=== PATIENT | female | born 1980 | race Hispanic/Latino ===

== ENCOUNTER 2020-05-15 21:05 | Emergency (ER) | payer BC ==
[2020-05-15 22:09] LABS: Protime INR 0.98
[2020-05-15 22:12] LABS: ALT/SGPT 22 U/L (12-78); AST/SGOT 12 U/L (15-37); Albumin 4.6 g/dL (3.4-5.0); Alkaline Phosphatase 90 U/L (45-117); BUN Blood Urea Nitrogen 6 mg/dL (7-18); Bicarbonate 26 mmol/L (21-32); Bilirubin Direct < 0.1 mg/dL (0-0.2); Bilirubin Total 0.2 mg/dL (0.2-1.0); Glucose Level 77 mg/dL (74-106); Magnesium 2.5 mg/dL (1.8-2.4); NT PRO-BNP 30 pg/mL (<125); Potassium 3.4 mmol/L (3.5-5.1); Protein, Total 8.6 g/dL (6.4-8.2); Sodium Level 140 mmol/L (136-145); Troponin (Emerg Dept Use Only) < 0.02 ng/mL (0.0-0.045)
--- NOTE | 2020-05-15 22:12 | RAD REPORT ---
EXAM DESCRIPTION: RAD - Chest Single View - 05/15/2020 10:03 pm CLINICAL HISTORY: CHEST PAIN Chest pain. COMPARISON: No comparisons FINDINGS: Portable technique limits examination quality. The lungs are grossly clear. The heart is normal in size. No displaced fractures. IMPRESSION: No acute intrathoracic process suspected.
[2020-05-15] MEDS ORDERED: METOCLOPRAMIDE 10 MG/2mL INJ ONE (22:59)
[2020-05-15] MEDS ORDERED: NA CHLORIDE 0.9% 1,000 ML ONE (22:59)
[2020-05-15] MEDS ORDERED: DIPHENHYDRAMINE 50 MG/ML VIAL ONE (22:59)
[2020-05-15 23:05] LABS: Absolute Lymphocytes (CBC) 1.8 K/uL (0.7-4.9); Basophils % 0.7 % (0-1.3); Hematocrit 34.9 % (36.0-45.0); Lymphocytes % 24.8 % (15.3-44.8); MPV 10.5 fL (7.6-11.3); RBC Red Blood Cell Count 4.58 M/uL (3.86-4.86)
[2020-05-15 23:14] LABS: Barbiturates NEGATIVE (NEGATIVE); Benzodiazepines NEGATIVE (NEGATIVE); Cocaine NEGATIVE (NEGATIVE); METHAMPHETAM NEGATIVE (NEGATIVE); Methadone NEGATIVE (NEGATIVE); Opiates NEGATIVE (NEGATIVE); Phencyclidine NEGATIVE (NEGATIVE); THC Cannibis NEGATIVE (NEGATIVE)
[2020-05-15 23:32] LABS: Urine Blood NEGATIVE (NEG); Urine Glucose NEGATIVE (NEG)
[2020-05-15 23:33] LABS: Urine Protein NEGATIVE (NEG)
[2020-05-15 23:34] LABS: Urine Bacteria 20-50 /HPF (<20); Urine Culture Reflex Order REFLEXED; Urine RBC <5 /HPF (NONE SEEN); Urine Urothelial Cells <5 /HPF (NONE SEEN)
--- NOTE | 2020-05-16 02:03 | ER ---
Nurse's Notes [facility] Name: Lyndsay Mahoney Age: 39 yrs Sex: Female : 1980 Arrival Date: 05/15/2020 Time: 21:06 Bed 7 Private MD: Rahul Drummond Diagnosis: Chest pain, unspecified;Sinusitis;UTI Presentation: 05/15 21:12 Chief complaint: Patient states: chest pain, on and off for like a month or so. It has ca1 gotten worse tonight with my L arm tingling and numbness, headache and nausea. Took Lisinopril 40mg at 1730 as prescribed. 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 Coronavirus screen: Client denies travel out of the [place] in the last 14 days. headache, nausea, The client reports previous COVID testing was negative. Date of collection: March 2020. Ebola Screen: Patient negative for fever greater than or equal to 101.5 degrees Fahrenheit, and additional compatible Ebola Virus Disease symptoms Patient denies exposure to infectious person. Patient denies travel to an Ebola-affected area in the 21 days before illness onset. No symptoms or risks identified at this time. Initial Sepsis Screen: Does the patient meet any 2 criteria? No. Patient's initial sepsis screen is negative. Does the patient have a suspected source of infection? No. Patient's initial sepsis screen is negative. Risk Assessment: Do you want to hurt yourself or someone else? Patient reports no desire to harm self or others. Onset of symptoms was May 15, 2020. 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 - Social history:: Smoking status: Patient reports the use of cigarette tobacco products, smokes one pack cigarettes per day. Screenin:15 Abuse screen: Denies threats or abuse. Nutritional screening: No deficits noted. jb4 Tuberculosis screening: No symptoms or risk factors identified. Fall Risk None identified. Assessment: 21:15 General: Appears in no apparent distress. uncomfortable, Behavior is calm, cooperative, jb4 appropriate for age. Pain: Complains of pain in chest Pain radiates to left arm, head Pain currently is 8 out of 10 on a pain scale. Quality of pain is described as pressure. Neuro: Level of Consciousness is awake, alert, obeys commands, Oriented to person, place, time, situation. Cardiovascular: Patient's skin is warm and dry. Respiratory: Airway is patent Respiratory effort is even, unlabored, Respiratory pattern is regular, symmetrical. GI: No signs and/or symptoms were reported involving the gastrointestinal system. : No signs and/or symptoms were reported regarding the genitourinary system. EENT: No signs and/or symptoms were reported regarding the EENT system. Derm: Skin is intact, Skin is pink, warm \T\ dry. Musculoskeletal: Circulation, motion, and sensation intact. Range of motion: intact in all extremities. 22:15 Reassessment: Patient appears in no apparent distress at this time. Patient and/or jb4 family updated on plan of care and expected duration. Pain level reassessed. Patient is alert, oriented x 3, equal unlabored respirations, skin warm/dry/pink. 23:11 Reassessment: Patient appears in no apparent distress at this time. Patient and/or jb4 family updated on plan of care and expected duration. Pain level reassessed. Patient is alert, oriented x 3, equal unlabored respirations, skin warm/dry/pink. 05/16 00:10 Reassessment: Patient appears in no apparent distress at this time. Patient and/or jb4 family updated on plan of care and expected duration. Pain level reassessed. Patient is alert, oriented x 3, equal unlabored respirations, skin warm/dry/pink. 01:00 Reassessment: Patient appears in no apparent distress at this time. Patient and/or jb4 family updated on plan of care and expected duration. Pain level reassessed. Patient is alert, oriented x 3, equal unlabored respirations, skin warm/dry/pink. 02:00 Reassessment: Patient appears in no apparent distress at this time. Patient and/or jb4 family updated on plan of care and expected duration. Pain level reassessed. Patient is alert, oriented x 3, equal unlabored respirations, skin warm/dry/pink. Vital Signs: 05/15 21:12 BP 192 / 112; Pulse 99; Resp 18 S; Temp 98(TE); Pulse Ox 100% on R/A; Weight 62.14 kg ca1 (R); Height 5 ft. (152.40 cm); Pain /; 21:45 BP 162 / 110; Pulse 84; Resp 16; Pulse Ox 100% on R/A; jb4 23:15 BP 117 / 63; Pulse 90; Resp 16; Pulse Ox 100% on R/A; jb4 05/16 00:00 BP 118 / 75; Pulse 79; Resp 16; Pulse Ox 100% on R/A; jb4 01:13 BP 117 / 78; Pulse 76; Resp 16; Pulse Ox 99% on R/A; ll2 01:45 BP 104 / 65; Pulse 92; Resp 16; Pulse Ox 100% on R/A; jb4 05/15 21:12 Body Mass Index 26.76 (62.14 kg, 152.40 cm) ca1 ED Course: 05/15 21:06 Patient arrived in ED. am2 21:07 Rahul Drummond is Private Physician. am2 21:15 Patient has correct armband on for positive identification. Placed in gown. Bed in low jb4 position. Call light in reach. Side rails up X 1. real estate salesperson on. Pulse ox on. NIBP on. 21:16 Triage completed. ca1 21:18 Arm band placed on right wrist. ca1 21:33 Frank Maciel, RN is Primary Nurse. jb4 21:40 Initial lab(s) drawn, by wa, sent to lab. EKG done, by ED staff, reviewed by Tesfaye Llamas MD. Inserted saline lock: 18 gauge in right antecubital area, using aseptic technique. Blood collected. 22:04 Tesfaye Llamas MD is Attending Physician. 7 22:04 XRAY Chest (1 view) In Process Unspecified. EDMS 22:38 UDS Sent. ds4 22:41 Urine Dipstick--Ancillary (enter results) Sent. ds4 22:41 Urine Microscopic Only Sent. ds4 23:05 CT Head Brain wo Cont In Process Unspecified. EDMS 05/16 01:59 Abner Pandya MD is Referral Physician. mh7 02:10 No provider procedures requiring assistance completed. IV discontinued, intact, jb4 bleeding controlled, No redness/swelling at site. Pressure dressing applied. Administered Medications: 05/15 23:00 Drug: Reglan 10 mg Route: IVP; Site: right antecubital; jb4 23:30 Follow up: Response: No adverse reaction; Marked relief of symptoms jb4 23:00 Drug: Benadryl 25 mg Route: IVP; Site: right antecubital; jb4 23:30 Follow up: Response: No adverse reaction; Marked relief of symptoms jb4 23:00 Drug: NS 0.9% 1000 ml Route: IV; Rate: 1000 ml; Site: right antecubital; jb4 05/16 00:00 Follow up: Response: No adverse reaction; IV Status: Completed infusion jb4 02:08 Drug: LevaQUIN 500 mg Route: PO; jb4 02:12 Follow up: Response: Medication administered at discharge. jb4 Outcome: 02:00 Discharge ordered by . mh7 02:10 Discharged to home ambulatory, with family. jb4 02:10 Condition: stable 02:10 Discharge instructions given to patient, family, Instructed on discharge instructions, follow up and referral plans. medication usage, Demonstrated understanding of instructions, follow-up care, medications, Prescriptions given X 1. 02:13 Patient left the ED. jb4 Signatures: Dispatcher [employer] EDTX CavanaughMeng ds4 Frank Maciel RN RN jb4 Юлия Loera am2 Dai Edwards RN RN ca1 Josefina Martinez RN RN 2 Tesfaye Llamas MD MD 7 Corrections: (The following items were deleted from the chart) 05/15 23:25 23:11 Reassessment: Patient and/or family updated on plan of care and expected jb4 duration. Pain level reassessed. pt is resting in bed with eyes closed, no s/s of pain or distress noted. Daughter remains at the bedside. jb4
--- NOTE | 2020-05-16 02:04 | EDPHYS ---
Physician Documentation [facility] Name: Lyndsay Mahoney Age: 39 yrs Sex: Female : 1980 Arrival Date: 05/15/2020 Time: 21:06 Bed 7 Private MD: Rahul Drummond ED Physician Tesfaye Llamas HPI: 05/15 22:49 This 39 yrs old Female presents to ER via Ambulatory with complaints of mh7 Headache, Chest Pain, Arm tingling. 22:49 The patient or guardian reports chest pain that is located primarily in the anterior mh7 chest wall, left. The pain radiates to the left arm. 22:49 Associated signs and symptoms: Pertinent positives: headache, nausea, Pertinent mh7 negatives: abdominal pain, cough, diaphoresis, dizziness, lower extremity pain, lower extremity swelling, lightheadedness, near syncope, palpitations, recent travel, shortness of breath, syncope, vomiting. The chest pain is described as sharp. Duration: The patient or guardian reports multiple episodes, that are intermittent, that wax and wane, with no pattern. Modifying factors: The symptoms are alleviated by nothing. the symptoms are aggravated by nothing. Severity of pain: At its worst the pain was moderate today, in the emergency department the pain has improved moderately. The patient has experienced similar episodes in the past, multiple times. Patient with intermittent chest pain for more than one month that seemed to increase earlier today. She also reports headache and nausea.. 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 - Social history:: Smoking status: Patient reports the use of cigarette tobacco products, smokes one pack cigarettes per day. ROS: 22:49 Constitutional: Negative for fever, chills, and weight loss, Eyes: Negative for injury, mh7 pain, redness, and discharge, ENT: Negative for injury, pain, and discharge, Neck: Negative for injury, pain, and swelling, Respiratory: Negative for shortness of breath, cough, wheezing, and pleuritic chest pain, Back: Negative for injury and pain, : Negative for injury, bleeding, discharge, and swelling, MS/Extremity: Negative for injury and deformity, Skin: Negative for injury, rash, and discoloration, Psych: Negative for depression, anxiety, suicide ideation, homicidal ideation, and hallucinations, Allergy/Immunology: Negative for hives, rash, and allergies, Endocrine: Negative for neck swelling, polydipsia, polyuria, polyphagia, and marked weight changes, Hematologic/Lymphatic: Negative for swollen nodes, abnormal bleeding, and unusual bruising. Exam: 22:49 Constitutional: This is a well developed, well nourished patient who is awake, alert, mh7 and in no acute distress. Head/Face: Normocephalic, atraumatic. Eyes: Pupils equal round and reactive to light, extra-ocular motions intact. Lids and lashes normal. Conjunctiva and sclera are non-icteric and not injected. Cornea within normal limits. Periorbital areas with no swelling, redness, or edema. Neck: Trachea midline, no thyromegaly or masses palpated, and no cervical lymphadenopathy. Supple, full range of motion without nuchal rigidity, or vertebral point tenderness. No Meningismus. Chest/axilla: Normal chest wall appearance and motion. Nontender with no deformity. No lesions are appreciated. Cardiovascular: Regular rate and rhythm with a normal S1 and S2. No gallops, murmurs, or rubs. Normal PMI, no JVD. No pulse deficits. Respiratory: Lungs have equal breath sounds bilaterally, clear to auscultation and percussion. No rales, rhonchi or wheezes noted. No increased work of breathing, no retractions or nasal flaring. Abdomen/GI: Soft, non-tender, with normal bowel sounds. No distension or tympany. No guarding or rebound. No evidence of tenderness throughout. Back: No spinal tenderness. No costovertebral tenderness. Full range of motion. Skin: Warm, dry with normal turgor. Normal color with no rashes, no lesions, and no evidence of cellulitis. MS/ Extremity: Pulses equal, no cyanosis. Neurovascular intact. Full, normal range of motion. Neuro: Awake and alert, GCS 15, oriented to person, place, time, and situation. Cranial nerves II-XII grossly intact. Motor strength 5/5 in all extremities. Sensory grossly intact. Cerebellar exam normal. Normal gait. Psych: Awake, alert, with orientation to person, place and time. Behavior, mood, and affect are within normal limits. Vital Signs: 21:12 BP 192 / 112; Pulse 99; Resp 18 S; Temp 98(TE); Pulse Ox 100% on R/A; Weight 62.14 kg ca1 (R); Height 5 ft. (152.40 cm); Pain 8/10; 21:45 BP 162 / 110; Pulse 84; Resp 16; Pulse Ox 100% on R/A; jb4 23:15 BP 117 / 63; Pulse 90; Resp 16; Pulse Ox 100% on R/A; jb4 05/16 00:00 BP 118 / 75; Pulse 79; Resp 16; Pulse Ox 100% on R/A; jb4 01:13 BP 117 / 78; Pulse 76; Resp 16; Pulse Ox 99% on R/A; ll2 01:45 BP 104 / 65; Pulse 92; Resp 16; Pulse Ox 100% on R/A; jb4 05/15 21:12 Body Mass Index 26.76 (62.14 kg, 152.40 cm) ca1 MDM: 05/15 22:30 Patient medically screened. 7 05/16 01:53 Differential diagnosis: acute myocardial infarction, acute pericarditis, anxiety, [facility] coronary artery disease chest wall pain, congestive heart failure costochondritis, pericarditis, pleurisy, pneumonia. HEART Score: History: Slightly Suspicious (0), ECG: Normal (0), Age: < or = 45 years (0), Risk Factors: 1 or 2 risk factors (1), [Hypertension] [DM] Troponin: < or = 1 x Normal Limit (0), Total Score = 1. Data reviewed: vital signs, nurses notes, lab test result(s), cardiac enzymes, CBC, electrolytes, urinalysis, EKG, radiologic studies, CT scan, plain films. Data interpreted: Pulse oximetry: on room air is 99 %. Interpretation: normal. Counseling: I had a detailed discussion with the patient and/or guardian regarding: the historical points, exam findings, and any diagnostic results supporting the discharge/admit diagnosis, lab results, radiology results, the need for outpatient follow up, to return to the emergency department if symptoms worsen or persist or if there are any questions or concerns that arise at home. Response to treatment: the patient's symptoms have resolved after treatment, the patient's blood pressure is in an acceptable range, mental status has returned to baseline, the patient no longer shows bradycardia, the patient is not short of breath, the patient is not tachycardic, the patient's pain is gone, the patient's temperature has normalized. 05/15 21:34 Order name: Basic Metabolic Panel; Complete Time: 22:30 [facility] 05/15 21:34 Order name: CBC with Diff; Complete Time: 23:16 [facility] 05/15 21:34 Order name: LFT's; Complete Time: 22:30 [facility] 05/15 21:34 Order name: Magnesium; Complete Time: 22:30 [facility] 05/15 21:34 Order name: NT PRO-BNP; Complete Time: 22:30 [facility] 05/15 21:34 Order name: PT-INR; Complete Time: 22:30 [facility] 05/15 21:34 Order name: Troponin (emerg Dept Use Only); Complete Time: 22:30 [facility] 05/15 21:34 Order name: XRAY Chest (1 view); Complete Time: 22:30 4 05/15 22:22 Order name: UDS; Complete Time: 23:16 4 05/15 22:38 Order name: Urine Microscopic Only; Complete Time: 00:00 4 05/15 22:39 Order name: Urine Dipstick--Ancillary (enter results); Complete Time: 00:00 4 05/15 22:40 Order name: Urine --Ancillary (enter results); Complete Time: 00:00 4 05/15 23:36 Order name: Urine Culture EDMS 05/16 00:54 Order name: Troponin I; Complete Time: 01:41 4 05/15 21:34 Order name: EKG; Complete Time: 21:35 [facility] 05/15 21:34 Order name: Cardiac monitoring; Complete Time: 21:46 4 05/15 21:34 Order name: EKG - Nurse/Tech; Complete Time: 21:46 [facility] 05/15 21:34 Order name: IV Saline Lock; Complete Time: 21:46 jb4 05/15 21:34 Order name: Labs collected and sent; Complete Time: 21:47 4 05/15 21:34 Order name: O2 Per Protocol; Complete Time: 21:47 jb4 05/15 21:34 Order name: O2 Sat Monitoring; Complete Time: 21:47 jb4 05/15 22:22 Order name: CT Head Brain wo Cont jb4 05/15 22:22 Order name: Urine Test (obtain specimen); Complete Time: 22:31 jb4 05/15 22:22 Order name: Urine Dipstick-Ancillary (obtain specimen); Complete Time: 22:31 [facility] Administered Medications: 05/15 23:00 Drug: Reglan 10 mg Route: IVP; Site: right antecubital; 4 23:30 Follow up: Response: No adverse reaction; Marked relief of symptoms jb4 23:00 Drug: Benadryl 25 mg Route: IVP; Site: right antecubital; 4 23:30 Follow up: Response: No adverse reaction; Marked relief of symptoms 4 23:00 Drug: NS 0.9% 1000 ml Route: IV; Rate: 1000 ml; Site: right antecubital; 4 05/16 00:00 Follow up: Response: No adverse reaction; IV Status: Completed infusion jb4 02:08 Drug: LevaQUIN 500 mg Route: PO; 4 02:12 Follow up: Response: Medication administered at discharge. 4 Disposition: 05/16/20 02:00 Discharged to Home. Impression: Chest pain, unspecified, Sinusitis, UTI. - Condition is Stable. - Discharge Instructions: Sinusitis, Adult, [id number], Urinary Tract Infection, Adult, [id number], Nonspecific Chest Pain, [id number]. - Prescriptions for Levaquin 500 mg Oral Tablet - take 1 tablet by ORAL route once daily for 7 days; 7 tablet. - Medication Reconciliation Form, Thank You Letter, Antibiotic Education, Prescription Opioid Use form. - Follow up: Private Physician; When: 1 - 2 days; Reason: Worsening of condition, Recheck today's complaints, Continuance of care, Re-evaluation by your physician. Follow up: Abner Pandya MD; When: 1 - 2 days; Reason: Worsening of condition, Recheck today's complaints. - Problem is an ongoing problem. - Symptoms have improved. Signatures: Dispatcher [employer] EDMS Jemal Alfaro, BENCH CARPENTER-C BENCH CARPENTER-Cla1 Frank Maciel RN RN jb4 Dai Edwards RN RN Tesfaye Garcia MD MD mh7 Corrections: (The following items were deleted from the chart) 02:13 02:00 05/16/2020 02:00 Discharged to Home. Impression: Chest pain, unspecified; jb4 Sinusitis; UTI. Condition is Stable. Forms are Medication Reconciliation Form, Thank You Letter, Antibiotic Education, Prescription Opioid Use. Follow up: Private Physician; When: 1 - 2 days; Reason: Worsening of condition, Recheck today's complaints, Continuance of care, Re-evaluation by your physician. Follow up: Abner Pandya; When: 1 - 2 days; Reason: Worsening of condition, Recheck today's complaints. Problem is an ongoing problem. Symptoms have improved. mh7
[2020-05-16] MEDS ORDERED: levoFLOXacin 250 MG TAB ONE (02:18)
[2020-05-16 02:31] VITALS: TEMP 98
[2020-05-16 02:38] VITALS: BP 104/65; O2SAT 100
--- NOTE | 2020-05-16 13:19 | RAD REPORT ---
EXAM DESCRIPTION: Head Brain Wo Cont CLINICAL HISTORY: 39 years Female HEADACHE COMPARISON: None TECHNIQUE: Contiguous axial images of the brain were obtained without the administration of intraven ous contrast.This exam was performed according to our departmental dose-optimization program which in cludes use of Automated Exposure Control, adjustment of the mA and/or kV according to patient size an d/or use of iterative reconstruction technique. DLP: 827 mGy*cm FINDINGS: Brain: No acute intracranial hemorrhage. No extra-axial collection. No mass effect or donny iation. Small rounded right basal ganglia hypodensity, likely prominent perivascular space. Ventricles: Within normal limits in size. Globes and orbits: No acute abnormality. Bones: No acute osseous finding Paranasal sinuses: Left maxillary sinus disease. Mastoid air cells: Well pneumatized. Soft tissues: Within normal limits IMPRESSION: No acute intracranial abnormality. Left maxillary sinus disease. Electronically signed by: Gibran Stanford DO 05/15/2020 11:11 PM CDT Due to temporary technical issues with the PACS/Fluency reporting system, reports are being signed by the in house radiologist without review as a courtesy to ensure prompt reporting. The interpreting r adiologist is fully responsible for the content of the report.
--- NOTE | 2020-05-17 07:15 | EKG ---
Test Date: 2020-05-15 Test Time: 21:40:55 Composition Worker: DAKOTA MEASUREMENT RESULTS: Intervals: Rate: 84 HI: 166 QRSD: 92 QT: 366 QTc: 432 [place]: P: 30 HI: 166 QRS: 10 T: 30 INTERPRETIVE STATEMENTS: Normal sinus rhythm Normal ECG No previous ECG available for comparison Electronically Signed On 05-17-20 07:13:43 CDT by Abner Pandya
== END 2020-05-16 02:13 | disposition home or self-care (01) ==
LOC: ER 21:05
DX: J32.9 Chronic sinusitis, unspecified (principal); N39.0 Urinary tract infection, site not specified; I10 Essential (primary) hypertension; E11.9 Type 2 diabetes mellitus without complications; F17.210 Nicotine dependence, cigarettes, uncomplicated
CPT/HCPCS: 96361; 93005; 87088; 85025; 87086; 80048; 36415; 83735; 81025; 85610; 80076; 80307 ×8; 84484 ×2; 83880; 70450; 71045; 96375; 96374; 99285; J2765; J1200; J7030; 81003; 81015

== ENCOUNTER 2022-03-28 02:10 | Emergency (ER) | payer BC, SELFPAY ==
--- OUTSIDE RECORDS SUMMARY | 2022-03-28 02:14 | XMS REPORT | Continuity of Care Document ---
:1980 Author Organization [facility] t Address [address] [place] [address] Care Team Providers Name Role Phone Asher Cantu MD Primary Care Physician [phone] SANTIAGO Attending Clinician Unavailable Clari Attending Clinician Unavailable ASHER CANTU Attending Clinician Unavailable MD ASHER CANTU Attending Clinician Unavailable SANTIAGO Admitting Clinician Unavailable Clari Admitting Clinician Unavailable ASHER CANTU Admitting Clinician Unavailable MD ASHER CANTU Admitting Clinician Unavailable Payers Payer Name Policy Type Policy Number Effective Date Expiration Date S lauraaxel [place] [id number] 2014 00:00:00 [place] Problems Condition Condition Condition Status Onset Resolution Last Treating Co mments Source Name Details Category Date Date Treatment Clinician Date Iron Iron Problem Active [facility] deficiency Deficiency 2-02 da anemia Anemia 00:00: Medical 00 Group COVID-19 COVID-19 Disease Active 2019-08 Metho di virus virus 18 [facility] detected detected 00:00: Hospit a 00 l Fecal Fecal Disease Active 2019-[address] 00:00: Hospita 00 l Colitis Colitis Disease Active 2019-08 Methodi 08-20 st 00:00: Hospita 00 l Hematochez Hematochez Disease Active 2019-08 Overview : Methodi ia ia 08-[address] 00:00: g of this Hospita 00 note l might be different from the original. Added automatic ally from request for surgery [id number] Iron Iron Disease Active 2019-08 Overview: Method i deficiency deficiency 08-[address] 00:00: g of this Hospita 00 note l might be different from the original. Added automatic ally from request for surgery [id number] On On Problem Active [facility] examinatio Examinatio 8 da n - VE - n - VE - 00:00: Medica l uterine Uterine 00 Group tenderness Tenderness Menometror Menometror Problem Active M [facility] rhagia rhagia 03-07 da 00:00: Medical 00 Group History of History of Problem Active [facility] anemia - Anemia - 03-07 da iron Iron 00:00: Medical deficient Deficient 00 Grou p Bacterial Bacterial Problem Active [facility] vaginosis Vaginosis 626 da 00:00: Medical 00 Group Right Right Problem Active [facility] lower Lower 6-26 da quadrant Quadrant 00:00: Medica l pain Pain 00 Group Acute Acute Problem Active [facility] pelvic Pelvic 9-25 da pain Pain 00:00: Medical 00 Group Pelvic Pelvic Problem Active [facility] mass Mass 9-25 da 00:00: Medical 00 Group Menorrhagi Menorrhagi Problem Active [facility] a a 9-11 da 00:00: Medical 00 Group Constipati Constipati Problem Active [facility] on on [facility] Rectal Rectal Problem Active [facility] hemorrhage Hemorrhage [facility] Left upper Left Upper Problem Active [facility] quadrant Quadrant da pain Pain Medical Group Allergies, Adverse Reactions, Alerts This patient has no known allergies or adverse reactions. Family History Family Member Diagnosis Comments Start Date Stop Date Source Natural father [facility] Natural mother Cancer [facility] Social History Social Habit Start Date Stop Date Quantity Comments Source History SDOH [facility] Alcohol Binge Hospital History SDOH [facility] Alcohol Comment Hospital History SDOH [facility] Alcohol Std Hospital Drinks Tobacco use and 2020-06-20 2020-06-20 User of smokeless Me thodist exposure 00:00:00 00:00:00 tobacco Hospital Alcohol intake 2020-06-20 2020-06-20 Current drinker Metho dist 00:00:00 00:00:00 of alcohol Hospital (finding) History SDOH 2020-06-20 2020-06-20 4 Yazidism Alcohol Frequency 00:00:00 00:00:00 Hospita l Sex Assigned At [birth year] Y[facility]idism 00:00:00 00:00:00 Hospital Smoking Status Start Date Stop Date Source Heavy Tobacco Smoker [facility] Smokes tobacco daily 2020-06-20 00:00:[address] [facility] Medications Ordered Filled Start Stop Current Ordering Indication Dosage Frequency Signature Comments Components Source Medication Medication Date Date Medication? Clinician (SIG) Name Name lisinopriL 2019-08 Yes 40mg QD Take 40 mg M ethodi (PRINIVIL) 1-[address] 40 mg 08:06: daily. Hospita tablet 11 l dulaglutide 2019-08 Yes 1.5mg Q1W Inject 1.5 [facility] (Trulicity) 1-[address] 1.5 mg/0.5 08:06: the skin Hos usha mL pen 11 every 7 l injector days. esomeprazol 2019-08 Yes 40mg QD Take 40 mg Methodi e (NexIUM) 1-[address] 40 MG 08:06: daily Hospita capsule 11 before l breakfast. ferrous 2019-08 Yes 325mg QD Take 1 [facility] sulfate 325 1-[address] (65 FE) MG 00:00: (325 mg Hosp nohemi EC tablet 00 total) by l mouth daily with breakfast. acetaminoph acetaminoph No acetaminop [place] en 300 en 300 hen 300 da mg-codeine mg-codeine mg-codeine Medical 30 mg 30 mg 30 mg Group tablet TAKE tablet TAKE tablet ONE (1) TO ONE (1) TO TAKE ONE TWO (2) TWO (2) (1) TO TWO TABLET(S) TABLET(S) (2) BY MOUTH BY MOUTH TABLET(S) EVERY SIX EVERY SIX BY MOUTH HOURS HOURS EVERY SIX NEEDED FOR NEEDED FOR HOURS PAIN. PAIN. NEEDED FOR PAIN. amlodipine amlodipine No amlodipine [facility] amlodipine amlodipine No amlodipine [facility] 5 mg tablet 5 mg tablet 5 mg d a tablet Medical Group Bydureon Bydureon No Bydureon [facility] BCise 2 BCise 2 BCise 2 da mg/0.85 mL mg/0.85 mL mg/0.85 mL Medical subcutaneou subcutaneou subcutaneo Group s s us auto-inject auto-inject auto-injec or Inject or Inject tor Inject by by by subcutaneou subcutaneou subcutaneo s route. s route. us route. esomeprazol esomeprazol No esomeprazo [place] e magnesium e magnesium le d a 40 mg 40 mg magnesium Medical capsule,del capsule,del 40 mg Group ayed ayed capsule,de release release layed TAKE ONE TAKE ONE release (1) (1) TAKE ONE CAPSULE(S) CAPSULE(S) (1) BY MOUTH BY MOUTH CAPSULE(S) DAILY. DAILY. BY MOUTH DAILY. Estarylla Estarylla No Estarylla [facility] 0.25 mg-35 0.25 mg-35 0.25 mg-35 da mcg tablet mcg tablet mcg tablet Medical TAKE ONE TAKE ONE TAKE ONE Christina up (1) (1) (1) TABLET(S) TABLET(S) TABLET(S) BY MOUTH BY MOUTH BY MOUTH ONCE A DAY. ONCE A DAY. ONCE A DAY. ferrous ferrous No ferrous [facility] sulfate 325 sulfate 325 sulfate da mg (65 mg mg (65 mg 325 mg (65 Medical iron) iron) mg iron) Group tablet TAKE tablet TAKE tablet ONE (1) ONE (1) TAKE ONE TABLET(S) TABLET(S) (1) BY MOUTH BY MOUTH TABLET(S) DAILY FOR DAILY FOR BY MOUTH THREE DAYS THREE DAYS DAILY FOR THEN THEN THREE DAYS INCREASE TO INCREASE TO THEN TWICE DAILY TWICE DAILY INCREASE FOR ONE FOR ONE TO TWICE WEEK THEN WEEK THEN DAILY FOR THREE TIMES THREE TIMES ONE WEEK DAILY. DAILY. THEN THREE TIMES DAILY. ferrous ferrous No ferrous [facility] sulfate 325 sulfate 325 sulfate da mg (65 mg mg (65 mg 325 mg (65 Medical iron) iron) mg iron) Group tablet,kirill tablet,kirill tablet,del yed release yed release ayed TAKE ONE TAKE ONE release (1) TABLET (1) TABLET TAKE ONE (325 MG (325 MG (1) TABLET TOTAL) BY TOTAL) BY (325 MG MOUTH DAILY MOUTH DAILY TOTAL) BY WITH WITH MOUTH BREAKFAST. BREAKFAST. DAILY WITH BREAKFAST. Flagyl 500 Flagyl 500 No 1 BID Flagyl 500 [facility] mg tablet mg tablet mg tablet da Take 1 Take 1 Take 1 Medical tablet tablet tablet Group twice a day twice a day twice a by oral by oral day by route for 7 route for 7 oral route days. days. for 7 days. ibuprofen ibuprofen No ibuprofen [facility] 800 mg 800 mg 800 mg da tablet TAKE tablet TAKE tablet Medical ONE (1) ONE (1) TAKE ONE Group TABLET(S) TABLET(S) (1) BY MOUTH BY MOUTH TABLET(S) EVERY SIX EVERY SIX BY MOUTH HOURS HOURS EVERY SIX NEEDED. NEEDED. HOURS NEEDED. lorazepam 1 lorazepam 1 No lorazepam [facility] mg tablet mg tablet 1 mg da TAKE ONE TAKE ONE tablet Medic al (1) (1) TAKE ONE Group TABLET(S) TABLET(S) (1) BY MOUTH BY MOUTH TABLET(S) ONCE A DAY ONCE A DAY BY MOUTH AT BEDTIME. AT BEDTIME. ONCE A DAY AT BEDTIME. losartan losartan No losartan [facility] medroxyprog medroxyprog No medroxypro [facility] esterone 10 esterone 10 gesterone da mg tablet mg tablet 10 mg Medi deven TAKE TWO TAKE TWO tablet Group (2) (2) TAKE TWO TABLET(S) TABLET(S) (2) BY MOUTH BY MOUTH TABLET(S) EVERY DAY EVERY DAY BY MOUTH FOR 14 FOR 14 EVERY DAY DAYS. DAYS. FOR 14 DAYS. mometasone mometasone No mometasone [facility] 50 50 50 da mcg/actuati mcg/actuati mcg/actuat Medical on nasal on nasal ion nasal Gr oup spray spray spray INSTILL TWO INSTILL TWO INSTILL (2) (2) TWO (2) SPRAY(S) SPRAY(S) SPRAY(S) INTO EACH INTO EACH INTO EACH NOSTRIL NOSTRIL NOSTRIL ONCE A DAY. ONCE A DAY. ONCE A DAY. phentermine phentermine No phentermin [facility] 37.5 mg 37.5 mg e 37.5 mg da tablet TAKE tablet TAKE tablet Medical ONE (1) ONE (1) TAKE ONE Group TABLET(S) TABLET(S) (1) BY MOUTH BY MOUTH TABLET(S) ONCE A DAY. ONCE A DAY. BY MOUTH ONCE A DAY. simvastatin simvastatin No simvastati [place] 10 mg 10 mg n 10 mg da tablet tablet tablet Medical Group Suprep Suprep No Suprep [facility] Bowel Prep Bowel Prep Bowel Prep da Kit 17.5 Kit 17.5 Kit 17.5 Med ical gram-3.13 gram-3.13 gram-3.13 Group gram-1.6 gram-1.6 gram-1.6 gram oral gram oral gram oral solution solution solution TAKE 1 KIT TAKE 1 KIT TAKE 1 KIT BY MOUTH BY MOUTH BY MOUTH SPLIT DOSE SPLIT DOSE SPLIT DOSE DIRECTED DIRECTED FOR FOR DIRECTED COLONOSCOPY COLONOSCOPY FOR PREP PREP COLONOSCOP Y PREP Tri-Alejandrina Tri-Alejandrina No Tri-Alejandrina [facility] 0.01 %-4 0.01 %-4 0.01 %-4 da %-0.05 % %-0.05 % %-0.05 % Med ical topical topical topical Group cream APPLY cream APPLY cream TO TO APPLY TO DISCOLORED DISCOLORED DISCOLORED SKIN ONCE SKIN ONCE SKIN ONCE AT BEDTIME AT BEDTIME AT BEDTIME FOR 8 WEEKS FOR 8 WEEKS FOR 8 (AVOID (AVOID WEEKS SUNLIGHT). SUNLIGHT). (AVOID SUNLIGHT). Trulicity Trulicity No Trulicity [facility] 1.5 mg/0.5 1.5 mg/0.5 1.5 mg/0.5 da mL mL mL Medical subcutaneou subcutaneou subcutaneo Group s pen s pen us pen injector injector injector INJECT ONE INJECT ONE INJECT ONE (1) SYRINGE (1) SYRINGE (1) UNDER THE UNDER THE SYRINGE SKIN ONCE SKIN ONCE UNDER THE WEEKLY WEEKLY SKIN ONCE DIRECTED. DIRECTED. WEEKLY DIRECTED. valsartan valsartan No valsartan [facility] 320 mg 320 mg 320 mg da tablet TAKE tablet TAKE tablet Medical ONE (1) ONE (1) TAKE ONE Group TABLET(S) TABLET(S) (1) BY MOUTH BY MOUTH TABLET(S) ONCE A DAY. ONCE A DAY. BY MOUTH ONCE A DAY. Vital Signs Vital Name Observation Time Observation Value Comments Source BP Diastolic 2020-11-21 00:00:00 98 mm[Hg] [facility] Height 2020-11-21 00:00:00 61 [in_i] [facility] BMI (Body Mass 2020-11-21 00:00:00 25.6 kg/m2 [facility] Medical Index) Group BP Systolic 2020-11-21 00:00:00 140 mm[Hg] [facility] Body Weight 2020-11-21 00:00:00 135.7 [lb_av] [facility] BP Diastolic 2020-11-02 00:00:00 93 mm[Hg] [facility] Height 2020-11-02 00:00:00 61 [in_i] [facility] BMI (Body Mass 2020-11-02 00:00:00 25.3 kg/m2 [facility] Medical Index) Group BP Systolic 2020-11-02 00:00:00 157 mm[Hg] [facility] Body Weight 2020-11-02 00:00:00 133.9 [lb_av] [facility] BP Diastolic 2020-10-17 00:00:00 85 mm[Hg] [facility] Height 2020-10-17 00:00:00 61 [in_i] [facility] BMI (Body Mass 2020-10-17 00:00:00 24.8 kg/m2 [facility] Medical Index) Group BP Systolic 2020-10-17 00:00:00 129 mm[Hg] [facility] Body Weight 2020-10-17 00:00:00 131.3 [lb_av] [facility] BP Diastolic 2020-09-05 00:00:00 71 mm[Hg] [facility] Height 2020-09-05 00:00:00 61 [in_i] [facility] BMI (Body Mass 2020-09-05 00:00:00 26.4 kg/m2 [facility] Medical Index) Group BP Systolic 2020-09-05 00:00:00 126 mm[Hg] [facility] Body Weight 2020-09-05 00:00:00 139.6 [lb_av] [facility] BP Diastolic 2020-08-15 00:00:00 102 mm[Hg] [facility] Height 2020-08-15 00:00:00 61 [in_i] [facility] BMI (Body Mass 2020-08-15 00:00:00 25.4 kg/m2 [facility] BP Systolic 2020-08-15 00:00:00 156 mm[Hg] [facility] Body Weight 2020-08-15 00:00:00 134.6 [lb_av] [facility] BP Diastolic 2020-03-07 00:00:00 88 mm[Hg] [facility] Height 2020-03-07 00:00:00 61 [in_i] [facility] BMI (Body Mass 2020-03-07 00:00:00 26.3 kg/m2 [facility] BP Systolic 2020-03-07 00:00:00 141 mm[Hg] [facility] Body Weight 2020-03-07 00:00:00 139 [lb_av] [facility] BP Diastolic 2020-01-28 00:00:00 100 mm[Hg] [facility] Height 2020-01-28 00:00:00 61 [in_i] [facility] BMI (Body Mass 2020-01-28 00:00:00 25.9 kg/m2 [facility] BP Systolic 2020-01-28 00:00:00 160 mm[Hg] [facility] Body Weight 2020-01-28 00:00:00 137 [lb_av] [facility] Procedures Procedure Date / Time Performing Clinician Source Performed US, pelvis 2020-10-17 00:00:00 [facility] Colonoscopy 2020-07-27 00:00:00 [facility] US, transvaginal 2020-03-07 00:00:00 [facility] Colonoscopy 2016-04-29 00:00:00 [facility] Anesth Tubal Ligation 2004-03-17 00:00:00 [facility] Hysteroscopy, with [facility] (Surg) Plan of Care Planned Activity Planned Date Details Comments Source Diagnostic Test 2020-11-21 urinalysis, [facility] Pending 00:00:00 dipstick [code = Group urinalysis, dipstick] Encounters Start End Encounter Admission Attending Care Care Encounter Source Date/Time Date/Time Type Type Clinicians Facility Department ID 2022-02-14 2022-02-14 Outpatient LINDA [facility] [id number] [facility] 11:20:00 11:20:00 [facility] 0714 da [facility] 2021-03-13 2021-03-13 Outpatient [facility] 2020 [place] 12:58:00 12:58:00 0810 [facility] 2021-02-06 2021-02-06 Outpatient [facility] 2020 [place] 12:36:00 12:36:00 0706 [facility] 2021-01-03 2021-01-03 Outpatient [facility] 2020 [place] 01:03:00 01:03:00 0602 [facility] 2021-01-03 2021-01-03 Outpatient [facility] 2020 [place] 01:03:00 01:03:00 0623 [facility] 2020-12-01 2020-12-01 Outpatient [facility] 2020 [place] 10:11:00 10:11:00 0505 [facility] 2020-11-29 2020-11-29 Outpatient [facility] 2020 [place] 01:05:00 01:05:00 0428 [facility] 2020-11-22 2020-11-22 Outpatient [facility] 2020 [place] 10:45:00 10:45:00 0423 [facility] 2020-11-21 2020-11-21 Outpatient [facility] 2020 [place] 04:54:00 04:54:00 0420 [facility] 2020-11-21 2020-11-21 [facility] [place] - [id number] [facility] 00:00:00 00:00:00 [facility] bonita Guillen MD: [address] [place] [address] [place] [address] , Ph. [phone] 2020-11-20 2020-11-20 Outpatient [facility] 2020 [place] 10:32:00 10:32:00 0419 [facility] 2020-11-10 2020-11-10 Outpatient [facility] 2020 [place] 01:47:00 01:47:00 0415 [facility] 2020-11-02 2020-11-02 Outpatient [facility] 2020 [place] 03:40:00 03:40:00 0401 [facility] 2020-11-02 2020-11-02 Outpatient [facility] 2020 [place] 03:40:00 03:40:00 0403 Medical Group 2020-11-02 2020-11-02 [facility] [place] - [id number] [facility] 00:00:00 00:00:00 Discovery bonita Guillen MD: [address] [place] [phone] , Ph. [phone] 2020-10-17 2020-10-17 Outpatient [facility] 2020 [facility] 04:20:00 04:20:00 0316 Medical Group 2020-10-17 2020-10-17 Outpatient [facility] 2020 [place] 04:20:00 04:20:00 0321 Medical Group 2020-10-17 2020-10-17 [facility] [place] - [id number] [facility] 00:00:00 00:00:00 Discovery bonita Guillen MD: [address] [place] [phone] , Ph. [phone] 2020-10-11 2020-10-11 Outpatient [facility] 2020 [place] 03:56:00 03:56:00 0310 Medical Group 2020-10-04 2020-10-04 Outpatient [facility] 2020 [place] 01:03:00 01:03:00 0303 [facility] 2020-09-28 2020-09-28 Outpatient [facility] 2020 [place] 05:04:00 05:04:00 0225 [facility] 2020-09-05 2020-09-05 Outpatient [facility] 2020 [place] 05:00:00 05:00:00 0202 [facility] 2020-09-05 2020-09-05 Outpatient [facility] 2020 [place] 05:00:00 05:00:00 0205 [facility] 2020-09-05 2020-09-05 [facility] [place] - [id number] [facility] 00:00:00 00:00:00 Discovery bonita Guillen MD: [address] [place] [phone] , Ph. [phone] 2020-08-30 2020-08-30 Outpatient [facility] 2020 [place] 01:04:00 01:04:00 0127 [facility] 2020-08-15 2020-08-15 Outpatient [facility] 2020 [place] 05:01:00 05:01:00 0112 [facility] 2020-08-15 2020-08-15 Outpatient [facility] 2020 [place] 05:01:00 05:01:00 0113 [facility] 2020-08-15 2020-08-15 [facility] [place] - [id number] [facility] 00:00:00 00:00:00 Discovery bonita Guillen MD: [address] [place] [phone] , Ph. [phone] 2020-08-07 2020-08-07 Outpatient [facility] [id number] [place] 11:50:00 11:50:00 0104 [facility] 2020-06-21 2020-06-21 Outpatient [facility] [id number] [place] 02:28:00 02:28:00 1118 [facility] 2020-06-20 2020-06-21 Outpatient [facility] [id number] [place] [address] 00:00:00 00:00:00 ASHER [address] 2020-03-07 2020-03-07 Outpatient [facility] 2019 [place] 07:09:00 07:09:00 0804 [facility] 2020-03-07 2020-03-07 Anaid Tomlinson MM [place] - [id number] [place] 00:00:00 00:00:00 Discovery bonita Estrada [facility]: [address] [place] [phone] , Ph. [phone] 2020-01-30 2020-01-30 Outpatient [facility] 2019 [place] 09:17:00 09:17:00 0628 Medical Group 2020-01-28 2020-01-28 Outpatient [facility] 2019 [place] 02:32:00 02:32:00 0626 Medical Group 2020-01-28 2020-01-28 Anaid Tomlinson MM [place] - [id number] [place] 00:00:00 00:00:00 Discovery bonita Estrada [facility]: [address] [place] [phone] , Ph. [phone] 2020-01-26 2020-01-26 Outpatient [facility] [id number] [place] 01:11:00 01:11:00 0625 [facility] 2020-01-03 2020-01-03 Outpatient [facility] [id number] [place] 11:03:00 11:03:00 0601 [facility] 2019-12-14 2019-12-14 Outpatient [facility] [id number] [place] 12:26:00 12:26:00 0512 [facility] 2019-11-09 2019-11-09 Outpatient [facility] 2019 [place] 12:52:00 12:52:00 0407 Medical Group 2019-10-05 2019-10-05 Outpatient [facility] 2019 [place] 12:07:00 12:07:00 0303 Medical Group 2019-09-23 2019-09-23 Outpatient [facility] 2019 [place] 12:56:00 12:56:00 0220 [facility] Results Test Description Test Time Test Comments Results Result Comments Source Urinalysis macro (dipstick) panel - Urine 2020-11-21 16:44:0 1 Test Item Value Reference Range Interpretation Comme nts Leukocytes (test code = Leukocytes) Negative Nitrite (test code = Nitrite) negative Urobilinogen (test code = Urobilinogen) .2 Protein (test code = Protein) Negative pH (test code = pH) 6.5 Blood (test code = Blood) Non-Hemolyzed: Trace Specific Atwood (test code = Specific Atwood) 1.025 Ketone (test code = Ketone) Negative Bilirubin (test code = Bilirubin) Negative Glucose (test code = Glucose) Negative Appearance (test code = Appearance) Clear Color (test code = Color) Yellow [facility] [id number] 14:52:05 Test Item Value Reference Range Interpretation Comments Test (test code = negative Test) [facility] [id number] 14:52:05 Test Item Value Reference Range Interpretation Comments Test (test code = negative Test) [facility]dipstick) panel - [id number] 14:51:16 Test Item Value Reference Range Interpretation Comments Leukocytes (test code = Leukocytes) Trace Nitrite (test code = Nitrite) negative Urobilinogen (test code = .2 Urobilinogen) Protein (test code = Protein) Negative pH (test code = pH) 6.5 Blood (test code = Blood) Small Specific Atwood (test code = 1.020 Specific Atwood) Ketone (test code = Ketone) Negative Bilirubin (test code = Bilirubin) Negative Glucose (test code = Glucose) 100 Appearance (test code = Appearance) Clear Color (test code = Color) [facility]stick[facility] panel - [id number] 14:51:16 Test Item Value Reference Range Interpretation Comments Leukocytes (test code = Leukocytes) Trace Nitrite (test code = Nitrite) negative Urobilinogen (test code = .2 Urobilinogen) Protein (test code = Protein) Negative pH (test code = pH) 6.5 Blood (test code = Blood) Small Specific Atwood (test code = 1.020 Specific Atwood) Ketone (test code = Ketone) Negative Bilirubin (test code = Bilirubin) Negative Glucose (test code = Glucose) 100 Appearance (test code = Appearance) Clear Color (test code = Color) [facility] Differential panel - [id number] 02:05:00 Test Item Value Reference Range Interpretation Comments white blood count (test code = 6.4 K/uL 4.0-11.5 white blood count) red blood count (test code = red 4.53 M/uL 3.80-5.20 blood count) hemoglobin (test code = 12.6 g/dL 10.5-15.7 hemoglobin) hematocrit (test code = 39.8 % 34.0-50.0 hematocrit) MCV [Entitic volume] (test code = 87.6 fL 86-100 33338-7) mean corpuscular hemoglobin (test 28.0 pg 26.2-33.4 code = mean corpuscular hemoglobin) mean corpuscular HGB conc (test 32.0 g/dL 30-34 code = mean corpuscular HGB conc) red cell distribution width (test 18.9 % 12.0-15.5 H code = red cell distribution width) platelet count (test code = 286 K/uL 165-450 platelet count) mean platelet volume (test code = 11.2 fL 9.4-12.6 mean platelet volume) Segmented neutrophils/100 67.1 % 44.4-80.1 leukocytes in Blood (test code = 20284-6) Immature granulocytes [#/volume] 0.0 K/uL 0.0-0.03 in Blood (test code = 69820-5) lymphocyte% (test code = 23.4 % 10.0-50.0 lymphocyte%) mono % (test code = mono %) 6.8 % 3.6-12.0 eos % (test code = eos %) 2.0 % 0.0-5.4 Basophils/100 leukocytes in 0.5 % 0.1-1.2 Unspecified specimen (test code = 19305-0) Band form neutrophils [#/volume] 4.27 K/uL 1.56-6.13 in Blood (test code = 90533-3) Lymphocytes [#/volume] in 1.5 K/uL 1.18-3.74 Unspecified specimen by Automated count (test code = 36068-4) mono # (test code = mono #) 0.43 K/uL 0.24-0.86 eos # (test code = eos #) 0.13 K/uL 0.04-0.36 basophil # (test code = basophil 0.03 K/uL 0.01-0.08 #) NRBC% (test code = NRBC%) 0 /100 WBC 0-0.2 NRBC# (test code = NRBC#) 0 K/uL [facility] metabolic 2000 panel - Serum or [id number] 02:05:00 Test Item Value Reference Range Interpretation Comments glucose (test code = glucose) 83 mg/dL 74-106 Urea nitrogen [Mass/volume] in 8 mg/dL 6-20 Serum or Plasma (test code = 3094-0) osmolality calculated,serum (test 281 mOsm/kg 280-300 code = osmolality calculated,serum) creatinine (test code = 0.7 mg/dL 0.50-0.90 creatinine) glomerular filtration rate (test >60.00 code = glomerular filtration rate) Urea nitrogen/Creatinine [Mass 11.4 12-20 L Ratio] in Serum or Plasma (test code = 3097-3) sodium level (test code = sodium 142 mmol/L 135-145 level) Potassium [Moles/volume] in Body 4.5 mmol/L 3.5-5.2 fluid (test code = 2821-7) chloride level (test code = 108 mmol/L 98-108 chloride level) CO2 (test code = CO2) 24 mmol/L 21-32 anion gap (test code = anion gap) 14.5 mEq/L 12-20 calcium level (test code = 9.5 mg/dL 8.6-10.0 calcium level) [facility] W Auto Differential panel - [id number] 02:05:00 Test Item Value Reference Range Interpretation Comments white blood count (test code = 6.4 K/uL 4.0-11.5 white blood count) red blood count (test code = red 4.53 M/uL 3.80-5.20 blood count) hemoglobin (test code = 12.6 g/dL 10.5-15.7 hemoglobin) hematocrit (test code = 39.8 % 34.0-50.0 hematocrit) MCV [Entitic volume] (test code = 87.6 fL 86-100 97126-9) mean corpuscular hemoglobin (test 28.0 pg 26.2-33.4 code = mean corpuscular hemoglobin) mean corpuscular HGB conc (test 32.0 g/dL 30-34 code = mean corpuscular HGB conc) red cell distribution width (test 18.9 % 12.0-15.5 H code = red cell distribution width) platelet count (test code = 286 K/uL 165-450 platelet count) mean platelet volume (test code = 11.2 fL 9.4-12.6 mean platelet volume) Segmented neutrophils/100 67.1 % 44.4-80.1 leukocytes in Blood (test code = 76196-0) Immature granulocytes [#/volume] 0.0 K/uL 0.0-0.03 in Blood (test code = 60683-8) lymphocyte% (test code = 23.4 % 10.0-50.0 lymphocyte%) mono % (test code = mono %) 6.8 % 3.6-12.0 eos % (test code = eos %) 2.0 % 0.0-5.4 Basophils/100 leukocytes in 0.5 % 0.1-1.2 Unspecified specimen (test code = 68564-2) Band form neutrophils [#/volume] 4.27 K/uL 1.56-6.13 in Blood (test code = 98617-9) Lymphocytes [#/volume] in 1.5 K/uL 1.18-3.74 Unspecified specimen by Automated count (test code = 48672-6) mono # (test code = mono #) 0.43 K/uL 0.24-0.86 eos # (test code = eos #) 0.13 K/uL 0.04-0.36 basophil # (test code = basophil 0.03 K/uL 0.01-0.08 #) NRBC% (test code = NRBC%) 0 /100 WBC 0-0.2 NRBC# (test code = NRBC#) 0 K/uL [facility] - Serum or [id number] 02:05:00 Test Item Value Reference Range Interpretation Comments glucose (test code = glucose) 83 mg/dL 74-106 Urea nitrogen [Mass/volume] in 8 mg/dL 6-20 Serum or Plasma (test code = 3094-0) osmolality calculated,serum (test 281 mOsm/kg 280-300 code = osmolality calculated,serum) creatinine (test code = 0.7 mg/dL 0.50-0.90 creatinine) glomerular filtration rate (test >60.00 code = glomerular filtration rate) Urea nitrogen/Creatinine [Mass 11.4 12-20 L Ratio] in Serum or Plasma (test code = 3097-3) sodium level (test code = sodium 142 mmol/L 135-145 level) Potassium [Moles/volume] in Body 4.5 mmol/L 3.5-5.2 fluid (test code = 2821-7) chloride level (test code = 108 mmol/L 98-108 chloride level) CO2 (test code = CO2) 24 mmol/L 21-32 anion gap (test code = anion gap) 14.5 mEq/L 12-20 calcium level (test code = 9.5 mg/dL 8.6-10.0 calcium level) [facility]dipstick[facility] panel - [id number] 16:02:48 Test Item Value Reference Range Interpretation Comments Leukocytes (test code = Trace Leukocytes) Nitrite (test code = negative Nitrite) Urobilinogen (test code = .2 Urobilinogen) Protein (test code = Negative Protein) pH (test code = pH) 6.5 Blood (test code = Blood) Non-Hemolyzed: Trace Specific [place] (test 1.005 code = Specific [place]) Ketone (test code = Negative Ketone) Bilirubin (test code = Negative Bilirubin) Glucose (test code = Negative Glucose) Appearance (test code = Clear Appearance) Color (test code = Color) Yellow [facility]dipstick[facility] panel - [id number] 16:02:48 Test Item Value Reference Range Interpretation Comments Leukocytes (test code = Trace Leukocytes) Nitrite (test code = negative Nitrite) Urobilinogen (test code = .2 Urobilinogen) Protein (test code = Negative Protein) pH (test code = pH) 6.5 Blood (test code = Blood) Non-Hemolyzed: Trace Specific [place] (test 1.005 code = Specific [place]) Ketone (test code = Negative Ketone) Bilirubin (test code = Negative Bilirubin) Glucose (test code = Negative Glucose) Appearance (test code = Clear Appearance) Color (test code = Color) Yellow [facility] [Presence] in Respiratory specimen by VERITO with probe [id number] 05:10:49 Test Item Value Reference Range Interpretation Comments SARS-CoV-2 (COVID-19) RNA [Presence] Detected Not-Detected in Respiratory specimen by VERITO with probe detection (test code = 27506-0) CBC W Auto Differential panel - [id number] 10:12:00 Test Item Value Reference Range Interpretation Comments white blood count (test code = 6.7 K/uL 4.0-11.5 white blood count) red blood count (test code = red 4.04 M/uL 3.80-5.20 blood count) hemoglobin (test code = 9.9 g/dL 10.5-15.7 L hemoglobin) hematocrit (test code = 32.8 % 34.0-50.0 L hematocrit) MCV [Entitic volume] (test code = 81.2 fL 86-100 L 18335-7) mean corpuscular hemoglobin (test 24.5 pg 26.2-33.4 L code = mean corpuscular hemoglobin) mean corpuscular HGB conc (test 30.2 g/dL 30-34 code = mean corpuscular HGB conc) red cell distribution width (test 15.0 % 12.0-15.5 code = red cell distribution width) platelet count (test code = 257 K/uL 165-450 platelet count) mean platelet volume (test code = 12.1 fL 9.4-12.6 mean platelet volume) Segmented neutrophils/100 68.5 % 44.4-80.1 leukocytes in Blood (test code = 83622-0) Immature granulocytes [#/volume] 0.0 K/uL 0.0-0.03 in Blood (test code = 93368-9) lymphocyte% (test code = 23.6 % 10.0-50.0 lymphocyte%) mono % (test code = mono %) 5.7 % 3.6-12.0 eos % (test code = eos %) 1.4 % 0.0-5.4 Basophils/100 leukocytes in 0.5 % 0.1-1.2 Unspecified specimen (test code = 89685-3) Band form neutrophils [#/volume] 4.56 K/uL 1.56-6.13 in Blood (test code = 01287-2) Lymphocytes [#/volume] in 1.6 K/uL 1.18-3.74 Unspecified specimen by Automated count (test code = 28416-0) mono # (test code = mono #) 0.38 K/uL 0.24-0.86 eos # (test code = eos #) 0.09 K/uL 0.04-0.36 basophil # (test code = basophil 0.03 K/uL 0.01-0.08 #) NRBC% (test code = NRBC%) 0 /100 WBC 0-0.2 NRBC# (test code = NRBC#) 0 K/uL [facility], method unspecified - [id number] 10:12:00NeutrophilsBandLymphocyteAtypical LymphMonocyteEosinophilBasophilNucleated Red Blood CellPlatelet EstimatePlatelet MorphologyToxic GranulationHypersegmented PolysDifferential comment-PMaSimpson General HospitalThyrotropin [Units/volume] in Serum or [id number] 10:12:00 Test Item Value Reference Range Interpretation Comments Thyrotropin [Units/volume] in 1.16 uIU/mL 0.36-3.74 Serum or Plasma (test code = 3016-3) [facility] HospitalThyroxine (T4) free [Mass/volume] in Serum or Plasma 2020-03-07 10:12:00 Test Item Value Reference Range Interpretation Comments free T4 (test code = free T4) 1.22 NG/dL 0.93-1.7 [facility] HospitalTestosterone [Mass/volume] in Serum or [id number] 10:12:00 Test Item Value Reference Range Interpretation Comments testosterone-women (test code = 18.18 NG/dL testosterone-women) [facility]
[2022-03-28 03:03] LABS: Absolute Lymphocytes (CBC) 1.9 K/uL (0.7-4.9); Hematocrit 43.1 % (36.0-45.0); Lymphocytes % 20.8 % (15.3-44.8); MCV 97.7 fL (80-100); RBC Red Blood Cell Count 4.41 M/uL (3.86-4.86)
[2022-03-28] MEDS ORDERED: AMLODIPINE 10 MG TAB ONE (03:03)
[2022-03-28] MEDS ORDERED: ONDANSETRON 4 MG/2 ML VIAL ONE (03:03)
[2022-03-28] MEDS ORDERED: NA CHLORIDE 0.9% 1,000 ML ONE (03:03)
[2022-03-28] MEDS ORDERED: MIDAZOLAM HCL 2 MG/2 ML INJ ONE (03:03)
[2022-03-28] MEDS ORDERED: THIAMINE 200 MG/2 ML INJ ONE (03:03)
[2022-03-28] MEDS ORDERED: FAMOTIDINE 20 MG/2 ML VIAL IV ONE (03:04)
[2022-03-28 03:06] LABS: Protime INR 1.03
[2022-03-28 03:30] LABS: ALT/SGPT 38 U/L (12-78); AST/SGOT 17 U/L (15-37); Alkaline Phosphatase 95 U/L (45-117); BUN Blood Urea Nitrogen 4 mg/dL (7-18); Bicarbonate 22 mmol/L (21-32); Bilirubin Total 0.2 mg/dL (0.2-1.0); Glomerular Filtration Rate 113 ml/min (=/>90); Glucose Level 341 mg/dL (74-106); Lipase 273 U/L (73-393); Magnesium 2.2 mg/dL (1.8-2.4); NT PRO-BNP 61 pg/mL (<125); Potassium 3.1 mmol/L (3.5-5.1); Protein, Total 7.6 g/dL (6.4-8.2); Sodium Level 141 mmol/L (136-145); Troponin High Sensitivity 3.3 pg/mL (<58.9)
[2022-03-28 03:38] LABS: Bilirubin Direct < 0.1 mg/dL (0-0.2)
[2022-03-28 03:53] LABS: Urine Blood Negative (Negative); Urine Glucose 3+ (Negative); Urine Protein Negative (Negative); Urine Specific Gravity 1.015 (1.005-1.030); Urine pH 6.5 (5.0-7.0)
--- NOTE | 2022-03-28 04:00 | ER ---
Nurse's Notes [facility] Name: Lyndsay Mahoney Age: 41 yrs Sex: Female : 1980 Arrival Date: 03/28/2022 Time: 02:13 Bed 8 Private MD: Diagnosis: Essential (primary) hypertension;Alcohol abuse with intoxication;Headache;Other acute sinusitis;Type 2 diabetes mellitus with hyperglycemia;Hypokalemia Presentation: 03/28 02:26 Chief complaint: Patient states: she has really bad anxiety which she takes medicine bb for but currently she is out of her medication and she started having a real bad anxiety attack after arguing with her boyfriend augie. Coronavirus screen: At this time, the client does not indicate any symptoms associated with coronavirus-19. Ebola Screen: No symptoms or risks identified at this time. Initial Sepsis Screen: Does the patient meet any 2 criteria? No. Patient's initial sepsis screen is negative. Does the patient have a suspected source of infection? No. Patient's initial sepsis screen is negative. Risk Assessment: Do you want to hurt yourself or someone else? Patient reports no desire to harm self or others. Onset of symptoms was March 28, 2022. 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 - Social history:: Smoking status: Patient reports the use of cigarette tobacco products. - Family history:: not pertinent. Screenin:18 Abuse screen: Denies threats or abuse. Nutritional screening: No deficits noted. kl Tuberculosis screening: No symptoms or risk factors identified. Fall Risk None identified. Assessment: 02:30 General: Appears distressed, unkempt, Behavior is anxious, crying, Smells of alcohol. kl Pain: Complains of pain in left temporal area and left frontal area and forehead and top of head Pain currently is 7 out of 10 on a pain scale. Neuro: [place] Agitation-Sedation Scale (RASS): +1 Restless Level of Consciousness is awake, alert, obeys commands, Oriented to person, place, time, situation. Cardiovascular: No deficits noted. Heart tones S1 S2. Respiratory: No deficits noted. Airway is patent Trachea midline Respiratory effort is even, unlabored, Respiratory pattern is regular, Breath sounds are clear bilaterally. GI: No deficits noted. No signs and/or symptoms were reported involving the gastrointestinal system. : No deficits noted. No signs and/or symptoms were reported regarding the genitourinary system. EENT: No deficits noted. No signs and/or symptoms were reported regarding the EENT system. Derm: No deficits noted. No signs and/or symptoms reported regarding the dermatologic system. Vital Signs: 02:26 BP 186 / 117; Pulse 125; Resp 20 S; Temp 98.4(O); Pulse Ox 96% on R/A; Weight 68.04 kg bb (R); Height 5 ft. 1 in. (154.94 cm) (R); Pain 0/10; 03:21 BP 149 / 92; Pulse 110; Resp 18; Pulse Ox 98% on R/A; kl 04:32 BP 128 / 61; Resp 18; Pulse Ox 98% ; kl 02:26 Body Mass Index 28.34 (68.04 kg, 154.94 cm) bb [place] Coma Score: 02:38 Eye Response: spontaneous(4). Verbal Response: oriented(5). Motor Response: obeys daya commands(6). Total: 15. ED Course: 02:13 Patient arrived in ED. bp1 02:23 Maged Castorena MD is Attending Physician. daya 02:29 Triage completed. bb 02:29 Arm band placed on Patient placed in an exam room, on a stretcher, on pulse oximetry. bb EKG completed in triage. Results shown to . 02:48 Inserted saline lock: 20 gauge in left forearm, using aseptic technique. kl 03:10 CT Head Brain wo Cont In Process Unspecified. EDMS 03:17 Acetaminophen Sent. kl 03:17 ETOH Level Sent. kl 03:18 Patient has correct armband on for positive identification. Side rails up X2. Adult w/ kl patient. 03:18 Basic Metabolic Panel Sent. kl 03:18 LFT's Sent. kl 03:18 Magnesium Sent. kl 03:18 NT PRO-BNP Sent. kl 03:18 Troponin HS Sent. kl 03:24 XRAY Chest (1 view) In Process Unspecified. EDMS 03:59 Delia Edgar MD is Referral Physician. [facility] 03:59 Kimmie Pennington MD is Referral Physician. daya 05:41 No provider procedures requiring assistance completed. IV discontinued, intact, jb4 bleeding controlled, No redness/swelling at site. Pressure dressing applied. Administered Medications: 02:40 Drug: NS 0.9% 1000 ml Route: IV; Rate: 1 bolus; Site: right antecubital; kl 02:45 Drug: Thiamine 100 mg Route: IV; Rate: bolus; Site: right antecubital; kl 02:45 Drug: Norvasc (amlodipine) 10 mg Route: PO; kl 05:40 Follow up: Response: No adverse reaction; Marked relief of symptoms; Blood pressure is jb4 lowered 02:55 Drug: Midazolam 2 mg Route: IVP; Site: right forearm; kl 05:41 Follow up: Response: No adverse reaction; Marked relief of symptoms jb4 03:00 Drug: Pepcid (famotidine) 20 mg Route: IVP; Site: right antecubital; kl 03:05 Drug: Zofran (Ondansetron) 4 mg Route: IVP; Site: right antecubital; kl 04:25 Drug: Potassium Effervescent Tablet 50 mEq Route: PO; jb4 05:40 Follow up: Response: No adverse reaction jb4 04:26 Drug: Insulin Regular Human 8 units {Co-Signature: jb4 (Frank Maciel RN).} Route: IVP; Site: right antecubital; 05:40 Follow up: Response: No adverse reaction; Marked relief of symptoms; Blood sugar is jb4 lowered Outcome: 03:59 Discharge ordered by . [facility] 05:41 Discharged to home ambulatory, with family. jb4 05:41 Condition: stable 05:41 Discharge instructions given to patient, Instructed on discharge instructions, follow up and referral plans. medication usage, Demonstrated understanding of instructions, follow-up care, medications, Prescriptions given X 4. 05:41 Patient left the ED. jb4 Signatures: Dispatcher [employer] EDMS Rosetta Banegas RN RN kl Anderson, Corey, MD MD cha Ballard, Brenda, RN RN bb Bryson, James, RN RN jb4 Paniauga, Katia bp1 Frank Gipsy RN jb4
--- NOTE | 2022-03-28 04:01 | EDPHYS ---
Physician Documentation [facility] Name: Lyndsay Mahoney Age: 41 yrs Sex: Female : 1980 Arrival Date: 03/28/2022 Time: 02:13 Bed 8 Private MD: ED Physician Maged Castorena HPI: 03/28 02:35 This 41 yrs old Female presents to ER via Ambulatory with complaints of daya Anxiety. 02:35 The patient complains of pain to the top of head, forehead, left frontal area and left daya temporal area. The patient describes the headache as constant. Onset: The symptoms/episode began/occurred just prior to arrival. etoh and fighting with her boyfriend. Associated signs and symptoms: The patient has no apparent associated signs or symptoms. Severity of symptoms: At its worst the pain was moderate, in the emergency department the pain is unchanged. Headache History: The patient has had previous headaches and this one is similar to previous episodes. Onset: The symptoms/episode began/occurred just prior to arrival. Severity of symptoms: At their worst the symptoms were mild in the emergency department the symptoms are unchanged. 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 - Social history:: Smoking status: Patient reports the use of cigarette tobacco products. - Family history:: not pertinent. ROS: 02:35 Constitutional: Negative for fever, chills, and weight loss, Eyes: Negative for injury, daya pain, redness, and discharge, ENT: Negative for injury, pain, and discharge, Neck: Negative for injury, pain, and swelling, Cardiovascular: Negative for chest pain, palpitations, and edema, Respiratory: Negative for shortness of breath, cough, wheezing, and pleuritic chest pain, Abdomen/GI: Negative for abdominal pain, nausea, vomiting, diarrhea, and constipation, Back: Negative for injury and pain, : Negative for injury, bleeding, discharge, and swelling, MS/Extremity: Negative for injury and deformity, Skin: Negative for injury, rash, and discoloration, Psych: Negative for depression, anxiety, suicide ideation, homicidal ideation, and hallucinations, Allergy/Immunology: Negative for hives, rash, and allergies, Endocrine: Negative for neck swelling, polydipsia, polyuria, polyphagia, and marked weight changes, Hematologic/Lymphatic: Negative for swollen nodes, abnormal bleeding, and unusual bruising. 02:35 Neuro: Positive for dizziness, headache. Exam: 02:35 Head/Face: Normocephalic, atraumatic. Eyes: Pupils equal round and reactive to light, daya extra-ocular motions intact. Lids and lashes normal. Conjunctiva and sclera are non-icteric and not injected. Cornea within normal limits. Periorbital areas with no swelling, redness, or edema. ENT: Nares patent. No nasal discharge, no septal abnormalities noted. Tympanic membranes are normal and external auditory canals are clear. Oropharynx with no redness, swelling, or masses, exudates, or evidence of obstruction, uvula midline. Mucous membranes moist. Neck: Trachea midline, no thyromegaly or masses palpated, and no cervical lymphadenopathy. Supple, full range of motion without nuchal rigidity, or vertebral point tenderness. No Meningismus. Chest/axilla: Normal chest wall appearance and motion. Nontender with no deformity. No lesions are appreciated. Respiratory: Lungs have equal breath sounds bilaterally, clear to auscultation and percussion. No rales, rhonchi or wheezes noted. No increased work of breathing, no retractions or nasal flaring. Abdomen/GI: Soft, non-tender, with normal bowel sounds. No distension or tympany. No guarding or rebound. No evidence of tenderness throughout. Back: No spinal tenderness. No costovertebral tenderness. Full range of motion. Skin: Warm, dry with normal turgor. Normal color with no rashes, no lesions, and no evidence of cellulitis. MS/ Extremity: Pulses equal, no cyanosis. Neurovascular intact. Full, normal range of motion. Neuro: Awake and alert, GCS 15, oriented to person, place, time, and situation. Cranial nerves II-XII grossly intact. Motor strength 5/5 in all extremities. Sensory grossly intact. Cerebellar exam normal. Normal gait. 02:35 Constitutional: The patient appears well nourished, smells of alcohol, ETOH, unkempt. 02:35 Head/face: Exam is negative for 02:35 Cardiovascular: Rate: tachycardic, Rhythm: regular, Pulses: Pulses are 4+ in bilateral radial, brachial, femoral, popliteal, posterior tibial and and dorsalis pedis arteries.. Heart sounds: normal, Edema: is not appreciated, JVD: is not appreciated. 02:35 ECG was reviewed by the Attending Physician. Vital Signs: 02:26 BP 186 / 117; Pulse 125; Resp 20 S; Temp 98.4(O); Pulse Ox 96% on R/A; Weight 68.04 kg bb (R); Height 5 ft. 1 in. (154.94 cm) (R); Pain 0/10; 03:21 BP 149 / 92; Pulse 110; Resp 18; Pulse Ox 98% on R/A; kl 04:32 BP 128 / 61; Resp 18; Pulse Ox 98% ; kl 02:26 Body Mass Index 28.34 (68.04 kg, 154.94 cm) bb [place] Coma Score: 02:38 Eye Response: spontaneous(4). Verbal Response: oriented(5). Motor Response: obeys daya commands(6). Total: 15. MDM: 02:23 Patient medically screened. daya 02:38 Differential diagnosis: hyponatremia, intracerebral hemorrhage, migraine, neoplasm, daya subdural hematoma, temporal arteritis, tension headache, trigeminal neuralgia. Data reviewed: vital signs, nurses notes, lab test result(s), EKG, radiologic studies, CT scan, plain films. Data interpreted: sleep tech: rate is 125 beats/min, rhythm is regular. Test interpretation: by ED physician or midlevel provider: ECG, plain radiologic studies. Counseling: I had a detailed discussion with the patient and/or guardian regarding: the historical points, exam findings, and any diagnostic results supporting the discharge/admit diagnosis, the presence of at least one elevated blood pressure reading (>120/80) during this emergency department visit, lab results, radiology results, the need for outpatient follow up, for definitive care, 03/28 02:32 Order name: Basic Metabolic Panel; Complete Time: 03:58 daya 03/28 02:32 Order name: CBC with Diff; Complete Time: 03:29 daya 03/28 02:32 Order name: LFT's; Complete Time: 03:58 [facility] 03/28 02:32 Order name: Magnesium; Complete Time: 03:58 [facility] 03/28 02:32 Order name: NT PRO-BNP; Complete Time: 03:58 [facility] 03/28 02:32 Order name: PT-INR; Complete Time: 03:29 [facility] 03/28 02:32 Order name: Troponin HS; Complete Time: 03:58 [facility] 03/28 02:32 Order name: Acetaminophen; Complete Time: 03:58 [facility] 03/28 02:32 Order name: ETOH Level; Complete Time: 03:29 [facility] 03/28 02:32 Order name: Ptt, Activated; Complete Time: 03:29 [facility] 03/28 02:32 Order name: Salicylate; Complete Time: 03:29 [facility] 03/28 02:32 Order name: Urine Drug Screen [facility] 03/28 02:32 Order name: Lipase; Complete Time: 03:58 [facility] 03/28 03:54 Order name: Urine Dipstick-Ancillary; Complete Time: 03:58 [facility] 03/28 02:32 Order name: XRAY Chest (1 view) [facility] 03/28 02:32 Order name: EKG; Complete Time: 02:33 [facility] 03/28 02:32 Order name: Cardiac monitoring; Complete Time: 03:17 [facility] 03/28 02:32 Order name: EKG - Nurse/Tech; Complete Time: 03:17 [facility] 03/28 02:32 Order name: IV Saline Lock; Complete Time: 03:17 [facility] 03/28 02:33 Order name: CT Head Brain wo Cont [facility] 03/28 04:32 Order name: Glucose, Ancillary Testing [facility] 03/28 05:30 Order name: Glucose, Ancillary Testing [facility] 03/28 02:32 Order name: Labs collected and sent; Complete Time: 03:17 [facility] 03/28 02:32 Order name: O2 Per Protocol [facility] 03/28 02:32 Order name: O2 Sat Monitoring [facility] 03/28 02:32 Order name: Suicide Screening ([place]); Complete Time: 03:20 [facility] 03/28 02:32 Order name: Urine Dipstick-Ancillary (obtain specimen) [facility] 03/28 02:32 Order name: Urine Test (obtain specimen) [facility] EC:35 Rate is 126 beats/min. Rhythm is regular. QRS [place] is Normal. [place] interval is normal. [facility] QRS interval is normal. QT interval is normal. No Q waves. T waves are Normal. No ST changes noted. Clinical impression: Sinus tachycardia. Interpreted by me. Administered Medications: 02:40 Drug: NS 0.9% 1000 ml Route: IV; Rate: 1 bolus; Site: right antecubital; kl 02:45 Drug: Thiamine 100 mg Route: IV; Rate: bolus; Site: right antecubital; kl 02:45 Drug: Norvasc (amlodipine) 10 mg Route: PO; kl 05:40 Follow up: Response: No adverse reaction; Marked relief of symptoms; Blood pressure is jb4 lowered 02:55 Drug: Midazolam 2 mg Route: IVP; Site: right forearm; kl 05:41 Follow up: Response: No adverse reaction; Marked relief of symptoms jb4 03:00 Drug: Pepcid (famotidine) 20 mg Route: IVP; Site: right antecubital; kl 03:05 Drug: Zofran (Ondansetron) 4 mg Route: IVP; Site: right antecubital; kl 04:25 Drug: Potassium Effervescent Tablet 50 mEq Route: PO; jb4 05:40 Follow up: Response: No adverse reaction jb4 04:26 Drug: Insulin Regular Human 8 units {Co-Signature: jb4 (Frank Maciel RN).} Route: IVP; kl Site: right antecubital; 05:40 Follow up: Response: No adverse reaction; Marked relief of symptoms; Blood sugar is jb4 lowered Disposition Summary: 03/28/22 03:59 Discharge Ordered Location: Home daya Problem: new daya Symptoms: have improved daya Condition: Fair daya Diagnosis - Essential (primary) hypertension daya - Alcohol abuse with intoxication daya - Headache daya - Other acute sinusitis daya - Type 2 diabetes mellitus with hyperglycemia daya - Hypokalemia daya Followup: daya - With: Private Physician - When: 2 - 3 days - Reason: Recheck today's complaints, Continuance of care, Re-evaluation by your physician Followup: daya - With: - When: 2 - 3 days - Reason: Recheck today's complaints, Re-evaluation by your physician Followup: daya - With: - When: 5 - 6 days - Reason: Recheck today's complaints, Re-evaluation by your physician Discharge Instructions: - Discharge Summary Sheet daya - Alcohol Intoxication daya - Hypertension, Adult daya - Alcohol Intoxication, [id number] daya - Sinusitis, Adult, [id number] daya - Sinusitis, Adult daya - Hypertension, Adult, [id number] daya - How to Take Your Blood Pressure, [id number] [facility] - Managing Your Hypertension daya - Diabetes Mellitus and Nutrition, Adult daya - Hypokalemia daya - Living With Diabetes [facility] Forms: - Medication Reconciliation Form [facility] - Thank You Letter [facility] - Antibiotic Education [facility] - Prescription Opioid Use [facility] Prescriptions: - Hydroxyzine HCl 25 mg Oral Tablet - take 1 tablet by ORAL route every 6 hours As needed; 30 tablet; Refills: 0, [facility] Product Selection Permitted - Augmentin 875-125 mg Oral Tablet - take 1 tablet by ORAL route every 12 hours for 10 days; 20 tablet; Refills: 0, [facility] Product Selection Permitted - Norvasc 10 mg Oral Tablet - take 1 tablet by ORAL route once daily; 30 tablet; Refills: 0, Product [facility] Selection Permitted - Zofran 4 mg Oral Tablet - take 1 tablet by ORAL route every 12 hours As needed; 20 tablet; Refills: 0, [facility] Product Selection Permitted Signatures: Dispatcher [employer] Rosetta Ordoñez RN RN kl Anderson, Corey, MD MD cha Ballard, Brenda RN RN Frank Spicer RN RN jb4 Frank Maciel RN jb4
[2022-03-28] MEDS ORDERED: INSULIN -REGULAR HUMAN 50 UNIT/0.5 ML ML ONE (04:19)
[2022-03-28] MEDS ORDERED: POTASSIUM 25 MEQ EFFERV TAB ONE (04:20)
[2022-03-28 04:29] LABS: Barbiturates NEGATIVE (NEGATIVE); Benzodiazepines POSITIVE (NEGATIVE); Cocaine NEGATIVE (NEGATIVE); METHAMPHETAM NEGATIVE (NEGATIVE); Methadone NEGATIVE (NEGATIVE); Opiates NEGATIVE (NEGATIVE); Phencyclidine NEGATIVE (NEGATIVE); THC Cannibis NEGATIVE (NEGATIVE)
[2022-03-28 05:47] VITALS: TEMP 98.4
[2022-03-28 05:49] VITALS: O2SAT 98
[2022-03-28 05:52] VITALS: BP 128/61
--- NOTE | 2022-03-28 15:10 | EKG ---
Test Date: 2022-03-28 Test Time: 02:27:20 Workers Compensation Claims Assistant: WINSTON MEASUREMENT RESULTS: Intervals: Rate: 126 AL: 150 QRSD: 84 QT: 316 QTc: 457 Crapo: P: 31 AL: 150 QRS: 18 T: 64 INTERPRETIVE STATEMENTS: Sinus tachycardia Cannot rule out Anterior infarct, age undetermined Abnormal ECG Compared to ECG 05/15/2020 21:40:55 Myocardial infarct finding now present Sinus rhythm no longer present Electronically Signed On 03-28-22 15:09:16 CDT by Thomas Infante
--- NOTE | 2022-03-28 17:50 | RAD REPORT ---
EXAM DESCRIPTION: CT - Head Brain Wo Cont - 03/28/2022 5:36 am CLINICAL HISTORY: Headache, new or worsening, positional COMPARISON: CT Head/Brain Without Contrast 05/15/2020 TECHNIQUE: Head/brain axial images acquired without contrast. Coronal and sagittal reformats created . Exam performed according to departmental dose-optimization program which includes automated exposur e control, adjustment of mA and/or kV according to patient size, and/or use of iterative reconstructi on technique. FINDINGS: No midline shift, mass effect, intracranial hemorrhage, or hydrocephalus. Brain parenchyma unremarkable. Partial Empty Sella (likely normal variant). Partially-imaged left maxillary sinus shows marked opacification versus large polyp/mucous retention cyst. This was also seen on 05/15/2020. Mastoid air cells clear. No skull fracture or significant skull lesion. IMPRESSION: 1. No CT evidence of acute intracranial abnormality. 2. Partially-imaged left maxillary sinus shows marked opacification versus large polyp/mucous retenti on cyst. This was also seen on 05/15/2020. Electronically signed by: Hung Chand MD 03/28/2022 3:26 AM CDT Due to temporary technical issues with the PACS/Fluency reporting system, reports are being signed by the in house radiologists without review as a courtesy to insure prompt reporting. The interpreting radiologist is fully responsible for the content of the report.
--- NOTE | 2022-03-28 18:03 | RAD REPORT ---
EXAM DESCRIPTION: RAD - Chest Single View - 03/28/2022 3:22 am CLINICAL HISTORY: The patient is 41 years old and is Female; COUGH TECHNIQUE: Frontal view of the chest. COMPARISON: No relevant prior studies available. FINDINGS: Lungs: Mildly prominent interstitial markings. No consolidation. Pleural space: Unremarkable. No pneumothorax. Heart: Unremarkable. Mediastinum: Unremarkable. Bones/joints: Unremarkable. Upper abdomen: Elevation the left hemidiaphragm. Gaseous distention of the bowel in the left upper quadrant. IMPRESSION: Mildly prominent interstitial markings. No consolidation. Electronically signed by: Riley Torres MD 03/28/2022 4:00 AM CDT Due to temporary technical issues with the PACS/Fluency reporting system, reports are being signed by the in house radiologists without review as a courtesy to insure prompt reporting. The interpreting radiologist is fully responsible for the content of the report.
== END 2022-03-28 05:41 | disposition home or self-care (01) ==
LOC: ER 02:10
DX: R51.9 Headache, unspecified (principal); J01.80 Other acute sinusitis; E87.6 Hypokalemia; E11.65 Type 2 diabetes mellitus with hyperglycemia; F10.129 Alcohol abuse with intoxication, unspecified; I10 Essential (primary) hypertension; Z88.1 Allergy status to other antibiotic agents
CPT/HCPCS: 36415; 70450; 71045; 80048; 80076; 80307; 80320; 80329; 81003; 82947; 83690; 83735; 83880; 84484; 85025; 85610; 85730; 93005; 99284; J1815; J2250; J2405; J3411; J7030